=== PATIENT | female | born 1960 | race African-American/Black ===

== ENCOUNTER 2018-10-18 11:57 | Emergency (ER) | payer MEDICAID ==
[~2018-10-18] VITALS: Ht 157.5 cm; Wt 56.7 kg
[~2018-10-18 11:57] MED LIST: AMLO10TA4 PO; CARI350T27 PO; ESOM40CA PO; GABA300C PO; HYDR-3028 PO; HYDR-4384 PO; MONT10TA22 PO; PHEN-705 PO
[2018-10-18 12:12] VITALS: BP 145/84
--- NOTE | 2018-10-18 12:29 | NUR ---
For discharge Patient discharged to home in stable condition. Written and verbal after care instructions given. Patient verbalizes understanding of instruction. Home ambulatory Stable
[2018-10-18 12:40] LABS: APPEARANCE,URINE Slightly Cloudy (CLEAR); BILIRUBIN,URINE Negative (NEGATIVE); BLOOD, URINE Trace-lysed Ery/uL (NEGATIVE); COLOR,URINE Dark Yellow (YELLOW); KETONES,URINE Negative (NEGATIVE); LEUKOCYTE ESTERASE ,URINE Moderate (NEGATIVE); NITRITE, URINE Positive (NEGATIVE); PROTEIN,URINE Trace mg/dl (NEGATIVE); UGLUCOSE Negative (NEGATIVE); UROBILINOGEN,URINE 0.2 EU/dL (0.2)
[2018-10-18 12:50] LABS: BACTERIA,URINE Few /HPF (None Seen); SQUAMOUS EPITHELIAL CELL,UR Few /HPF (None Seen); WBC,URINE 80-100 /HPF (0-3)
== END 2018-10-18 12:31 | disposition home or self-care (01) ==
LOC: ER 12:04
DX: A64 Unspecified sexually transmitted disease (principal); I10 Essential (primary) hypertension; M54.30 Sciatica, unspecified side; F41.9 Anxiety disorder, unspecified; F17.200 Nicotine dependence, unspecified, uncomplicated; Z93.50 Unspecified cystostomy status; Z91.040 Latex allergy status; Z88.0 Allergy status to penicillin; Z88.1 Allergy status to other antibiotic agents; Z88.2 Allergy status to sulfonamides
CPT/HCPCS: 81000-TC; 87086-TC; 87491; 87591